=== PATIENT | male | born 1960 | race Caucasian/White ===

== ENCOUNTER 2020-12-16 13:56 | Emergency (ER) | payer SELFPAY ==
[2020-12-16] MEDS ORDERED: Fluorescein Opthalmic Strip ONE (14:18)
[2020-12-16] MEDS ORDERED: Tetracaine 0.5% PF 4 ML BOT ONE (14:18)
[2020-12-16] MEDS ORDERED: Erythromycin Base 0.5% Ophth Oint 3.5 gm Tube ONE (15:10)
== END 2020-12-16 15:22 | disposition home or self-care (01) ==
LOC: MADERS 13:56
DX: S05.02XA Injury of conjunctiva and corneal abrasion without foreign body, left eye, initial encounter (principal); I10 Essential (primary) hypertension; W45.8XXA Other foreign body or object entering through skin, initial encounter
CPT/HCPCS: 99283